=== PATIENT | male | born 1990 | race Caucasian/White ===

== ENCOUNTER 2022-12-27 19:35 | Emergency (ER) | payer MEDICAID ==
[~2022-12-27] VITALS: Ht 177.8 cm; Wt 88.6 kg
[2022-12-27] MEDS ORDERED: nicotine 21mg patch - 24 hr TD ONE (20:05)
[2022-12-27 20:15] LABS: CLARITY,URINE CLEAR (Clear); COLOR,URINE YELLOW (Yellow); GLUCOSE, URINE NEGATIVE (Neg); KETONES,URINE NEGATIVE (Neg); LEUKOCYTE ESTERASE ,URINE NEGATIVE (Neg); NITRITES, URINE NEGATIVE (Neg); OCCULT BLOOD,URINE NEGATIVE (Neg); PROTEIN,URINE NEGATIVE (Neg); UROBILINOGEN,URINE 0.2 E.U/dL (0.2-1.0)
[2022-12-27 20:19] LABS: UA COLLECTION TYPE CLN CATCH MIDSTREAM
[2022-12-27 20:23] LABS: BASOPHILS # (AUTO) 0.1 X10'3 (0-0.2); BASOPHILS % (AUTO) 0.6 % (0-1); EOSINOPHILS # (AUTO) 0.1 X10'3 (0-0.9); EOSINOPHILS % (AUTO) 0.8 % (0-6); HEMATOCRIT 46.7 % (42.0-52.0); HEMOGLOBIN 16.4 g/dl (14.0-17.9); LYMPHOCYTES # (AUTO) 2.9 X10'3 (1.1-4.8); LYMPHOCYTES % (AUTO) 22.2 % (21-51); MEAN CORPUSCULAR HEMOGLOBIN 31.2 PG (27.0-31.0); MEAN CORPUSCULAR HGB CONC 35.2 g/dL (33.0-36.5); MEAN CORPUSCULAR VOLUME 88.7 FL (78-98); MEAN PLATELET VOLUME 8.7 FL (7.4-10.4); MONOCYTES # (AUTO) 0.8 X10'3 (0-0.9); MONOCYTES % (AUTO) 5.9 % (2-12); NEUTROPHILS # (AUTO) 9.1 X10'3 (1.8-7.7); NEUTROPHILS % (AUTO) 70.5 % (42-75); PLATELET COUNT 256 X10'3 (140-440); RED BLOOD COUNT 5.26 X10'6 (4.70-6.10); RED CELL DISTRIBUTION WIDTH 13.5 % (11.5-14.5); WHITE BLOOD COUNT 12.9 X10'3 (4.5-11.0)
[2022-12-27 20:36] LABS: URINE AMPHETAMINE SCREEN NEGATIVE (Neg); URINE BARBITUATE SCREEN NEGATIVE (Neg); URINE BENZODIAZEPINES SCREEN NEGATIVE (Neg); URINE CANNABINOID SCREEN POSITIVE (Neg); URINE COCAINE SCREEN NEGATIVE (Neg); URINE METHADONE SCREEN NEGATIVE (Neg); URINE OPIATE SCREEN NEGATIVE (Neg); URINE PHENCYCLIDINE SCREEN NEGATIVE (Neg)
[2022-12-27 20:37] LABS: ALANINE AMINOTRANSFERASE 42 U/L (12-78); ALBUMIN/GLOBULIN RATIO 1.7 (1.1-1.5); ALKALINE PHOSPHATASE 108 IU/L (46-116); ANION GAP 13 (8-16); ASPARTATE AMINO TRANSFERASE 21 U/L (10-37); BILIRUBIN,TOTAL 0.5 MG/DL (0.1-1.0); BLOOD UREA NITROGEN 6 MG/DL (7-18); BUN/CREATININE RATIO 6.4 (10.0-20.0); CALCIUM 9.7 MG/DL (8.5-10.1); CHLORIDE 100 MMOL/L (99-107); CREATININE 0.94 MG/DL (0.60-1.10); GLUCOSE 106 MG/DL (70-104); POTASSIUM 3.3 MMOL/L (3.5-5.1); SODIUM 137 MMOL/L (135-145); TOTAL CARBON DIOXIDE 23.6 MMOL/L (24-32); eGFR > 90 ML/MIN
[2022-12-27 20:50] LABS: ETHANOL < 0.010 GM/DL (0.0-0.010)
--- NOTE | 2022-12-27 21:12 | NUR ---
Patient recieved on overflow at 2100 from [employer] .
[2022-12-27] MEDS ORDERED: potassium Cl 20 mEq SR tablet PO ONE (21:15)
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
[2022-12-27] MEDS ORDERED: QUET150T16 PO (21:30)
[2022-12-27] MEDS ORDERED: CLON-528 PO (21:32)
[2022-12-27] MEDS ORDERED: CLON-527 PO (21:34)
[2022-12-27] MEDS ORDERED: LAMO100T65 PO (21:38)
[2022-12-27] MEDS ORDERED: FLUP5TAB4 PO (21:39)
[2022-12-27] MEDS ORDERED: lamoTRIgine 100mg tablet PO ONE (22:15)
[2022-12-27] MEDS ORDERED: clonazePAM 1mg tablet PO ONE (22:15)
[2022-12-27] MEDS ORDERED: quetiapine 100mg tablet PO ONE (22:15)
[2022-12-27] MEDS ORDERED: clonazePAM 1mg tablet PO SCH (22:18)
[2022-12-27] MEDS ORDERED: QUEtiapine 25mg tablet PO ONE (22:25)
[2022-12-27] MEDS ORDERED: Melatonin 3mg tablet PO ONE (22:30)
[2022-12-27] MEDS ORDERED: QUETIAPINE 150 MG TAB.SR.24H PO SCH (22:42)
--- NOTE | 2022-12-28 00:03 | NUR ---
Patients med rec was finished and medications were approved and ordered. Patient took all medications without issue including prn melatonin 9mg. Patient is currently sleeping quietly.
--- NOTE | 2022-12-28 02:11 | NUR ---
Patient continues to sleep . Breaths even and unlabored
--- NOTE | 2022-12-28 04:02 | NUR ---
Patient continues to be sleeping undisturbed. Patient shows no signs of distress, breaths are even and unlabored
--- NOTE | 2022-12-28 05:53 | NUR ---
Patient was cooperative with vitals and got up to use restroom. Patient asked nurse to look into blood pressure medication.
[2022-12-28 06:40] VITALS: BP 137/82
--- NOTE | 2022-12-28 06:40 | NUR ---
Assumed care from GEOFF RN. Pt in stable condition. Pt sitting up in bed eating. Pt states no thoughts of suicide or self harm. Pt states he was feeling overwhelmed yesterdat about his family situation. Pt is calma nd cooperative.
--- NOTE | 2022-12-28 07:46 | NUR ---
Pt up to RR cleaned himself, and changed his clothes.
[2022-12-28] MEDS ORDERED: clonazePAM 0.5mg tablet PO SCH (08:00)
--- NOTE | 2022-12-28 08:15 | NUR ---
Pt has had multiple crying episodes this morning r/t wanting to be D/C and missing his dog. Pt called family this AM shift.
--- NOTE | 2022-12-28 08:45 | NUR ---
Pt sitting on the side of the bed. Pt is talking to MHSW. Pt is calm, cooperative. Took all morning medications.
--- NOTE | 2022-12-28 09:19 | NUR ---
Note sybil in ED - 12/28/22 at 0921 by NINO Pt is being d/c. Pt spoke to his mother she will be here in 1.5 hrs. Nicotine patch to [facility] has been removed by Pt. Nicotine patch hiro placed in [facility]
--- NOTE | 2022-12-28 09:21 | NUR ---
Pt is being d/c. Pt spoke to his mother she will be here in 1.5 hrs. Nicotine patch to [facility] has been removed by Pt. Nicotine patch wad placed in [facility].
--- NOTE | 2022-12-28 09:59 | NUR ---
Pt is in room sitting on his bed snacking. Pt is calm, waiting for his mother to arrive
--- NOTE | 2022-12-28 10:59 | NUR ---
Pt is still waiting for his mom to arrive. Pt is laying on gurney resting.
--- NOTE | 2022-12-28 11:25 | NUR ---
Mother at bedside. Pt getting dressed.
[2022-12-28] MEDS ORDERED: Melatonin 3mg tablet PO SCH (21:00)
[2022-12-28] MEDS ORDERED: clonazePAM 1mg tablet PO SCH (21:00)
[2022-12-28] MEDS ORDERED: lamoTRIgine 100mg tablet PO SCH (21:00)
== END 2022-12-28 11:36 | disposition home or self-care (01) ==
LOC: ER 19:36
DX: R45.851 Suicidal ideations (principal); Z20.822 Contact with and (suspected) exposure to COVID-19; F31.9 Bipolar disorder, unspecified; F17.200 Nicotine dependence, unspecified, uncomplicated; F12.90 Cannabis use, unspecified, uncomplicated; Z91.018 Allergy to other foods
CPT/HCPCS: 36415; 80053; 80305; 80320; 81003; 84443; 85025; 87811; 99285